=== PATIENT | female | born 1985 | race Caucasian/White ===

== ENCOUNTER 2019-02-24 15:34 | Outpatient (CLI) | payer OTHER ==
[2019-02-24 17:24] LABS: Hemoglobin 11.7 g/dL (12.0-16.0); Mean Corpuscular HGB CONC 33.7 g/dL (32.0-36.0); Mean Corpuscular Hemoglobin 32.7 pg (27.0-31.0); Mean Corpuscular Volume 97.1 fL (78.0-98.0); Mean Platelet Volume 6.8 fL (7.4-10.4); Platelet Count 303 thou/uL (130-400); RBC Distribution Width 11.3 % (11.5-14.5); Red Blood Cell (RBC) Count 3.56 mill/uL (4.20-5.40); White Blood Cell (WBC) Count 9.3 thou/uL (4.8-10.8)
== END 2019-02-24 15:35 | disposition home or self-care (01) ==
LOC: LABBT 15:34
PROVIDERS: ATTEND Obstetrics & Gynecology
DX: Z01.812 Encounter for preprocedural laboratory examination (principal); O02.1 Missed abortion
CPT/HCPCS: 85027; 86850; 86900; 86901

== ENCOUNTER 2019-02-27 09:49 | Day surgery (SDC) | payer OTHER ==
[2019-02-24 16:31] VITALS: BMI 23.8
--- NOTE | 2019-02-25 07:27 | HP ---
She is set for an outpatient suction D and C from February 27. HISTORY OF PRESENT ILLNESS: Ms. Guerra is a 33-year-old white female, G2, P1, who by LMP is 9 weeks 1 day gestation. She received Clomid 50 mg for ovulation induction due to her history of polycystic ovarian syndrome and an anovulatory cycles. She was seen for new OB visit on February 24 and unfortunately, she was found to have a seven week embryonic demise on transvaginal ultrasound. She currently denies any abnormal bleeding or pelvic pain. PAST MEDICAL HISTORY: Her past medical history as noted, PCOS, along with ulcerative colitis. PAST SURGICAL HISTORY: She has had no previous surgery and she has had one full-term vaginal delivery. CURRENT MEDICATIONS: 1. Progesterone 200 mg vaginally for support. 2. She has also received Humira for her ulcerative colitis. 3. Mesalamine 1.2 g tablet delayed release for her ulcerative colitis. SOCIAL HISTORY: She is a nonsmoker. No excessive alcohol use. ALLERGIES: TO AMOXICILLIN AND KENALOG. PHYSICAL EXAMINATION: VITAL SIGNS: Her height is 5 feet 4 inches, weight 139 pounds, and BMI 23.9. Blood pressure 118/70, pulse 60, respirations 18, and O2 saturation 99%. HEENT: Within normal limits. CHEST: Clear to auscultation. HEART: Regular rate and rhythm. S1 and S2 heart sounds. No murmurs, rubs, or gallops. ABDOMEN: Soft, nontender, and nondistended. PELVIC: Vulva and vagina had no lesions. Cervix had no lesions. Uterus is approximately eight weeks, nontender. No adnexal masses appreciated. As noted, transvaginal ultrasound confirmed a seven week gestation with no cardiac activity consistent with a missed . LABORATORY DATA: Previous labs were notable for blood type A positive. ASSESSMENT: This is a 33-year-old white female G2, P1, with seven week embryonic demise. PLAN: For suction D and C, set from February 27. Risks and benefits of surgery discussed in detail. Job ID: [id number]
[2019-02-27] MEDS ORDERED: Clindamycin/D5W 900 mg/50 ml Premix Bag ONE (11:24)
[2019-02-27] MEDS ORDERED: Fentanyl 100 MCG/2 ML VIAL ONE (11:40)
[2019-02-27] MEDS ORDERED: Dexamethasone 20 MG/5 ML VIAL ONE (17:18)
[2019-02-27] MEDS ORDERED: PROPOFOL 200 MG/20 ML VIAL ONE (17:18)
[2019-02-27] MEDS ORDERED: PHENYLEPHRINE-NS 100 MCG/ML 10 ML SYRINGE ONE (17:18)
[2019-02-27] MEDS ORDERED: Lidocaine 1% PF 5 ML VIAL ONE (17:18)
[2019-02-27] MEDS ORDERED: Ondansetron PF 4 MG/2 ML Vial ONE (17:18)
[2019-02-27] MEDS ORDERED: ePHEDrine 50 MG/ML VIAL ONE (17:18)
--- NOTE | 2019-02-27 19:53 | OP ---
DATE OF PROCEDURE: 02/27/2019 PREOPERATIVE DIAGNOSIS: A 33-year-old white female, G2, P1, with 7 weeks embryonic demise. Blood type is A positive. POSTOPERATIVE DIAGNOSIS: A 33-year-old white female, G2, P1, with 7 weeks embryonic demise. Blood type is A positive. PROCEDURE PERFORMED: Suction dilatation and curettage. ANESTHESIA: General endotracheal. ESTIMATED BLOOD LOSS: 50 mL. COMPLICATIONS: None. COUNTS: Correct x2. PATHOLOGY: Products of conception. ANTIBIOTICS: 900 mg of clindamycin. FINDINGS: 1. Uterus approximately 8-week size, sounded to 10 cm. 2. Products evacuated consistent with products of conception. DESCRIPTION OF PROCEDURE: The patient previously received informed consent in regard to surgery. She was taken back to the operating room, where she received a general endotracheal anesthetic agent without complications. She was placed in dorsal lithotomy position with the use of candy-cane stirrups, and prepped and draped in usual sterile fashion. In-and-out catheterization of bladder was performed at this time. The weighted speculum was placed in the vagina. Anterior lip of the cervix was grasped with single-tooth tenaculum. The uterus sounded to 10 cm. A size 8 mm curved curette was selected. The cervix was sequentially dilated to a size 18 mm Cantu dilator. After this was accomplished, the suction curette was then placed through the cervical os into the uterine cavity, and the products of conception were evacuated 60 to 70 mmHg pressure. Once the majority of the products had been evacuated, sharp curettage of the cavity was performed. Repeat suction curettage was again performed, removing remaining placental fragments. There was no active bleeding from the cervical os noted. The suction curette had been removed. Tenaculum had been removed. Bimanual massage of the uterus and exam was again confirmed the uterus to be in firm. There was no active bleeding from supracervical os noted. The patient was then awakened from anesthesia and transferred to recovery room in stable condition. She is planned for discharge home later today with followup in approximately 2 to 3 weeks. Job ID: [id number]
== END 2019-02-27 14:40 | disposition home or self-care (01) ==
LOC: SDC 09:49
PROVIDERS: ATTEND Obstetrics & Gynecology
PROC: 10D17ZZ Extraction of Products of Conception, Retained, Via Natural or Artificial Opening (ICD-10-PCS; principal; 2019-02-27)
DX: O02.1 Missed abortion (principal); E28.2 Polycystic ovarian syndrome; K51.90 Ulcerative colitis, unspecified, without complications; Z88.0 Allergy status to penicillin; Z88.8 Allergy status to other drugs, medicaments and biological substances; Z79.899 Other long term (current) drug therapy
CPT/HCPCS: 88305; J1100; J2001; J2405; J2704; J3010; J3490

== ENCOUNTER 2020-05-14 07:22 | Outpatient (CLI) | payer OTHER ==
[2020-05-14 17:21] LABS: SARS-CoV-2 MS2 Positive; SARS-CoV-2 N Gene Negative; SARS-CoV-2 S Gene Negative; SARS-CoV-2 by NAA Not Detected (NotDetected); SARS-CoV-2 orf1ab Negative
== END 2020-05-14 07:23 | disposition home or self-care (01) ==
LOC: LABSCS 07:22
PROVIDERS: ATTEND Obstetrics & Gynecology
DX: Z01.812 Encounter for preprocedural laboratory examination (principal); Z11.59 Encounter for screening for other viral diseases
CPT/HCPCS: 87635; U0003